=== PATIENT | female | born 1980 | race Asian ===

== ENCOUNTER 2020-04-11 08:20 | Emergency (ER) | payer OTHER ==
[~2020-04-11] VITALS: Ht 172.7 cm; Wt 151.0 kg
--- NOTE | 2020-04-11 09:07 | NUR ---
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
--- NOTE | 2020-04-11 09:27 | NUR ---
first contact with pt. Called EMS last night for SOB and palpitations, dizzy. Not feeling any better. anxiety. pt denies cough/fever/bodyaches. pt's aox4. resps even and unlabored. all monitors in place. 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 call light within reach. ekg done at bedside by emt.
--- NOTE | 2020-04-11 09:30 | NUR ---
lab at bedside at this time.
[2020-04-11 10:04] LABS: BASOPHILS # (AUTO) 0.02 x10^3/uL (0-0.1); BASOPHILS % (AUTO) 0 % (0-1); EOSINOPHILS % (AUTO) 1 % (1-7); LYMPHOCYTES # (AUTO) 1.28 x10^3/uL (1-3.4); LYMPHOCYTES % (AUTO) 16 % (22-44); MD NO; MEAN CORPUSCULAR HEMOGLOBIN 26.3 pg (27.0-34.8); MEAN CORPUSCULAR HGB CONC 32.3 g/dL (32.4-35.8); MEAN CORPUSCULAR VOLUME 81.5 fL (80-100); MEAN PLATELET VOLUME 8.8 fL (7.4-10.4); MONOCYTES # (AUTO) 0.43 x10^3/uL (0.2-0.8); MONOCYTES % (AUTO) 5 % (2-9); NEUTROPHILS # (AUTO) 6.33 x10^3/uL (1.8-6.8); NEUTROPHILS % (AUTO) 78 % (42-75); PLATELET COUNT 359 x10^3/uL (130-400); RED BLOOD COUNT 4.48 x10^6/uL (3.82-5.3); RED CELL DISTRIBUTION WIDTH 14.7 % (9.6-15.2)
[2020-04-11 10:10] LABS: ALBUMIN 3.3 g/dL (3.4-5.0); ANION GAP 8 mmol/L (5-15); CALCIUM 8.9 mg/dL (8.5-10.1); CHLORIDE 106 mmol/L (98-107)
[2020-04-11 10:16] LABS: TROPONIN I < 0.015 ng/mL (0.000-0.045)
[2020-04-11] MEDS ORDERED: LORazepam 1MG TABLET PO ONE (10:30)
[2020-04-11] MEDS ORDERED: LORazepam 1MG TABLET ONE (10:34)
[2020-04-11 10:45] VITALS: BP 143/82
--- NOTE | 2020-04-11 10:45 | NUR ---
PT MEDICATED PER [facility]AR. PT TOLERATED WELL.
--- NOTE | 2020-04-11 11:03 | NUR ---
Patient given discharge instructions and they have confirmed that they understand the instructions. Patient ambulatory with steady gait.
== END 2020-04-11 11:04 | disposition home or self-care (01) ==
LOC: ED 09:32
DX: R06.00 Dyspnea, unspecified (principal); R42 Dizziness and giddiness; E11.9 Type 2 diabetes mellitus without complications
CPT/HCPCS: 36415; 71045; 80048; 82040; 84484; 85025; 85379; 93005; 99285